=== PATIENT | male | born 1965 | race Caucasian/White ===

== ENCOUNTER → 2022-12-05 15:09 | Outpatient (CLI) | payer OTHER, SELFPAY ==
--- NOTE | ~2022-12-05 | MR_ITS ---
MRI of the lumbar spine Clinical History: Back pain Technique: Axial T2-weighted images, and sagittal T1-weighted, T2-weighted, and T2 fat-sat images wer e acquired. Findings: There is no fracture or subluxation of the lumbar spine. Vertebral bodies maintain normal h eight and alignment. Intraosseous hemangioma noted at the L2 vertebral body. Probable smaller hemangi salomón present within the S1 vertebral body. No suspicious bone marrow signal abnormality seen. At L1-L2, there is minimal disc bulge with mild facet joint hypertrophy. No spinal canal stenosis. Th ere is mild to moderate right neural foraminal narrowing. Left neural foramen preserved. At L2-L3, there is advanced degenerative disc narrowing. There is mild disc bulge and moderate facet arthropathy. There is right lateral recess stenosis. There is moderate to severe right neural foramin al narrowing. Left neural foramen preserved. At L3-L4, there is diffuse disc bulge and mild facet arthropathy bilaterally. No spinal canal stenosi s. There is mild right neural foraminal narrowing. Left neural foramen preserved. At L4-L5, there is severe degenerative disc narrowing. Disc bulge and facet arthropathy are present. There is probable mild left lateral recess stenosis. There is moderate bilateral neural foraminal [place] row[place]. At L5-S1, there is diffuse disc bulge with advanced facet arthropathy. No spinal canal stenosis. Ther e is severe left neural foraminal narrowing and moderate to severe right neural foraminal narrowing. Paravertebral soft tissues are unremarkable. Impression: Moderate degenerative spondylosis, as detailed above, with multilevel neural foraminal narrowing. No fracture or subluxation. Reviewed, dictated and finalized at [facility]. Impression: Moderate degenerative spondylosis, as detailed above, with multilevel neural fo raminal narrowing. No fracture or subluxation.
== END ==
PROVIDERS: Visit Provider Family Medicine
DX: M54.32 Sciatica, left side (principal); M47.896 Other spondylosis, lumbar region
CPT/HCPCS: 72148